=== PATIENT | female | born 1945 | race Hispanic/Latino ===

== ENCOUNTER 2021-04-05 16:18 | Emergency (ER) | payer OTHER ==
[~2021-04-05] VITALS: Ht 152.4 cm; Wt 90.7 kg
[2021-04-05 17:35] LABS: BASOPHILS % 0.1 % (0.0-1.0); EOSINOPHILS % 0.2 % (0.0-6.0); HEMATOCRIT 38.6 % (34.2-44.1); HEMOGLOBIN 12.8 g/dL (12.0-16.0); LYMPHOCYTES # (AUTO) 1.8 (1.0-3.2); LYMPHOCYTES % 17.1 % (18.0-39.1); MEAN CORPUSCULAR HEMOGLOBIN 29.4 pg (28-32); MEAN CORPUSCULAR HGB CONC 33.2 g/dL (31-35); MEAN CORPUSCULAR VOLUME 88.7 fL (81-99); MONOCYTES # (AUTO) 0.6 (0.2-0.8); NEUTROPHILS # (AUTO) 7.8 (2.1-6.9); NEUTROPHILS % 75.9 % (38.7-80.0); PLATELET COUNT 223 x10e3/uL (140-360); RED BLOOD COUNT 4.35 x10e6/uL (3.6-5.1); RED CELL DISTRIBUTION WIDTH 13.6 % (11.7-14.4)
[2021-04-05 17:52] LABS: ALBUMIN 2.7 g/dL (3.5-5.0); ALBUMIN/GLOBULIN RATIO 0.7 (0.8-2.0); ANION GAP 15.4 mmol/L (8-16); CALCIUM 7.8 mg/dL (8.4-10.2); CREATININE, SERUM 1.1 mg/dL (0.57-1.11); POTASSIUM 3.4 mmol/L (3.5-5.1)
[2021-04-05 17:58] LABS: CREATINE KINASE MB 0.9 ng/mL (0-5.0)
[2021-04-05 21:02] VITALS: BP 146/89
== END 2021-04-05 21:05 | disposition home or self-care (01) ==
LOC: ER 20:56
DX: R42 Dizziness and giddiness (principal); I10 Essential (primary) hypertension; Z86.16 Personal history of COVID-19
CPT/HCPCS: 36415; 70450; 71045; 80053; 82550; 82553; 84484; 85025; 93005; 99283

== ENCOUNTER 2023-06-27 10:54 | Observation (INO) | payer MEDICARE, OTHER ==
[~2023-06-27] VITALS: Ht 152.4 cm; Wt 73.5 kg
[~2023-06-27 10:54] MED LIST: AMBIEN10 MG PO; CARVEDILOL25 MG PO; CEFUROXIME500 MG PO; CHLORTHALIDONE25 MG PO; CIPRO500 MG PO; HYDRALAZINE HCL25 MG PO; HYDRALAZINE HCL50 MG PO; HYDROCORTISONE5 MG PO; ISOSORBIDE MON120 MG PO; KLOR-CON 1010 MEQ PO; LEVOTHYROXINE50 MCG PO; ONDANSETRON ODT4 MG PO; SIMVASTATIN20 MG PO
[2023-06-27 12:11] LABS: BASOPHILS # (AUTO) 0.1 (0.0-0.1); BASOPHILS % 0.5 % (0.0-1.0); EOSINOPHILS # (AUTO) 0.1 (0.0-0.4); HEMATOCRIT 24.6 % (34.2-44.1); HEMOGLOBIN 7.8 g/dL (12.0-16.0); LYMPHOCYTES # (AUTO) 3.1 (1.0-3.2); LYMPHOCYTES % 28.4 % (18.0-39.1); MEAN CORPUSCULAR HEMOGLOBIN 30.2 pg (28-32); MEAN CORPUSCULAR HGB CONC 31.7 g/dL (31-35); MEAN CORPUSCULAR VOLUME 95.3 fL (81-99); MONOCYTES # (AUTO) 0.9 (0.2-0.8); MONOCYTES % 8.5 % (4.4-11.3); NEUTROPHILS # (AUTO) 6.6 (2.1-6.9); PLATELET COUNT 318 x10e3/uL (140-360); RED BLOOD COUNT 2.58 x10e6/uL (3.6-5.1); RED CELL DISTRIBUTION WIDTH 14.6 % (11.7-14.4); WHITE BLOOD COUNT 10.88 x10e3/uL (4.8-10.8)
[2023-06-27 12:28] LABS: ANION GAP 13.8 mmol/L (8-16); CALCIUM 8.6 mg/dL (8.4-10.2); CREATININE, SERUM 1.15 mg/dL (0.57-1.11); POTASSIUM 3.8 mmol/L (3.5-5.1)
[2023-06-27] MEDS ORDERED: SODIUM CHLORIDE 0.9% 1000ML 1,000 ML IV SCH (13:00)
[2023-06-27 13:14] LABS: BILIRUBIN,URINE NEGATIVE (NEGATIVE); CLARITY,URINE CLEAR (CLEAR); COLOR,URINE YELLOW (YELLOW); GLUCOSE, URINE NEGATIVE (NEGATIVE); KETONES,URINE NEGATIVE (NEGATIVE); LEUKOCYTE ESTERASE ,URINE NEGATIVE (NEGATIVE); NITRITE,URINE NEGATIVE (NEGATIVE); PH,URINE 7.5 (5 - 7); PROTEIN,URINE DIPSTICK NEGATIVE (NEGATIVE); URINE UROBILINOGEN 0.2 mg/dL (0.2 - 1)
[2023-06-27 13:15] LABS: BACTERIA,URINE FEW /HPF; EPITHELIAL CELLS,URINE FEW /LPF; RBC,URINE 0-5 /HPF (0-5); WBC,URINE (MAN) 0-5 /HPF (0-5)
[2023-06-27] MEDS ORDERED: HYDRALAZINE HCL 20 MG/ML VIAL IV STA (13:23)
[2023-06-27 15:01] LABS: % IRON SATURATION 10 % (15-50); IRON 32 ug/dL (50-170); TOTAL IRON BINDING CAPACITY 335 ug/dL (261-478); TRANSFERRIN 239 mg/dL (180-382)
[2023-06-27 15:22] VITALS: PULSE 80; RESP 18; O2SAT 98
[2023-06-27 15:30] VITALS: BP 148/54; PULSE 78; RESP 18; TEMP 97.8; O2SAT 99
[2023-06-27 15:37] VITALS: BP 148/54; PULSE 78; RESP 18; TEMP 97.8; O2SAT 99
[2023-06-27] MEDS ORDERED: ACETAMINOPHEN 325 MG TAB PO PRN (17:15)
[2023-06-27] MEDS ORDERED: HYDRALAZINE HCL 20 MG/ML VIAL IV PRN (17:15)
[2023-06-27] MEDS ORDERED: ONDANSETRON HCL INJ 2MG/ML 2ML 2 MG/ML VIAL IV PRN (17:15)
[2023-06-27] MEDS ORDERED: POLYETHYLENE GLYCOL 3350 17 GM PACK PO PRN (17:15)
[2023-06-27] MEDS ORDERED: IRON SUCROSE 100 MG in SODIUM CHLORIDE 0.9% 100 ML IV SCH (17:30)
[2023-06-27] MEDS: FERROUS SULFATE 325 MG TAB PO SCH (17:39)
[2023-06-27] MEDS: ASCORBIC ACID 500 MG TAB PO SCH (17:39)
[2023-06-27] MEDS: SODIUM CHLORIDE 0.9% 1000ML 1,000 ML IV SCH (17:46)
[2023-06-27 19:15] VITALS: PULSE 84; RESP 18; O2SAT 95
[2023-06-27 20:00] VITALS: BP 153/48; PULSE 80; RESP 18; TEMP 98.3; O2SAT 97
[2023-06-27] MEDS ORDERED: LISINOPRIL10 MG PO (20:14)
[2023-06-27] MEDS ORDERED: ALENDRONATE SOD70 MG PO (20:14)
[2023-06-28] VITALS (7 sets, daily range): BP systolic 147–188; BP diastolic 44–67; PULSE 55–85; RESP 17–19; TEMP 97.1–98.4; O2SAT 96–100
[2023-06-28] MEDS: SODIUM CHLORIDE 0.9% 1000ML 1,000 ML IV SCH (04:06)
[2023-06-28 05:53] LABS: BASOPHILS % 0.3 % (0.0-1.0); EOSINOPHILS # (AUTO) 0.1 (0.0-0.4); EOSINOPHILS % 0.8 % (0.0-6.0); HEMATOCRIT 24.3 % (34.2-44.1); HEMOGLOBIN 7.7 g/dL (12.0-16.0); LYMPHOCYTES # (AUTO) 2.5 (1.0-3.2); LYMPHOCYTES % 22.9 % (18.0-39.1); MEAN CORPUSCULAR HEMOGLOBIN 29.8 pg (28-32); MEAN CORPUSCULAR HGB CONC 31.7 g/dL (31-35); MEAN CORPUSCULAR VOLUME 94.2 fL (81-99); MONOCYTES # (AUTO) 0.8 (0.2-0.8); MONOCYTES % 7.3 % (4.4-11.3); NEUTROPHILS # (AUTO) 7.4 (2.1-6.9); PLATELET COUNT 318 x10e3/uL (140-360); RED BLOOD COUNT 2.58 x10e6/uL (3.6-5.1); RED CELL DISTRIBUTION WIDTH 14.6 % (11.7-14.4)
[2023-06-28 06:13] LABS: ANION GAP 13.9 mmol/L (8-16); CALCIUM 8.3 mg/dL (8.4-10.2); CREATININE, SERUM 1.19 mg/dL (0.57-1.11); POTASSIUM 3.9 mmol/L (3.5-5.1)
[2023-06-28 06:42] LABS: CHOL/HDL RATIO 3.1 (3.0-3.6); MAGNESIUM 1.8 MG/DL (1.3-2.1); PHOSPHORUS 3.4 MG/DL (2.3-4.7)
[2023-06-28] MEDS ORDERED: PANTOPRAZOLE SOD 40 MG TABEC PO SCH (07:30)
[2023-06-28] MEDS ORDERED: ONDANSETRON HCL 4 MG ORAL DISINTEGRATING TAB PO PRN (09:00)
[2023-06-28] MEDS ORDERED: DOCUSATE SODIUM 100 MG CAP PO SCH (09:00)
[2023-06-28] MEDS ORDERED: ZOLPIDEM TARTRATE 10 MG TAB PO PRN (09:00)
[2023-06-28] MEDS: ASCORBIC ACID 500 MG TAB PO SCH (09:10)
[2023-06-28] MEDS: FERROUS SULFATE 325 MG TAB PO SCH (09:10)
[2023-06-28] MEDS ORDERED: HYDROCORTISONE 10 MG TAB PO SCH (09:30)
[2023-06-28] MEDS ORDERED: CHLORTHALIDONE 25 MG TAB PO SCH (09:30)
[2023-06-28] MEDS ORDERED: LEVOTHYROXINE SODIUM 25 MCG TABLET PO SCH (09:30)
[2023-06-28] MEDS ORDERED: LISINOPRIL 20 MG TAB PO SCH (09:30)
[2023-06-28] MEDS ORDERED: CARVEDILOL 12.5 MG TAB PO SCH (09:30)
[2023-06-28] MEDS ORDERED: SIMETHICONE 80 MG CHEW PO PRN (11:15)
[2023-06-28] MEDS ORDERED: ASCORBIC ACID500 MG PO (11:17)
[2023-06-28] MEDS ORDERED: ACETAMINOPHEN325 M1 PO (11:17)
[2023-06-28] MEDS ORDERED: COLACE100 M1 PO (11:17)
[2023-06-28] MEDS ORDERED: FERROUS SULFAT325 MG PO (11:17)
[2023-06-28] MEDS ORDERED: MIRALAX17 GM PO (11:17)
[2023-06-28] MEDS ORDERED: SIMETHICONE 80 MG CHEW PO ONE (11:45)
[2023-07-05] MEDS ORDERED: ALENDRONATE SODIUM 70 MG TAB PO SCH (07:30)
== END 2023-06-28 14:45 | disposition home or self-care (01) ==
LOC: ER 11:11 → ERHOLD 13:27 → MED/SURG2 15:12
PROVIDERS: ADMIT Internal Medicine; ATTEND Internal Medicine
DX: D50.9 Iron deficiency anemia, unspecified (principal); I10 Essential (primary) hypertension; E86.0 Dehydration; D72.829 Elevated white blood cell count, unspecified; R11.0 Nausea; R00.1 Bradycardia, unspecified; E78.5 Hyperlipidemia, unspecified; E03.9 Hypothyroidism, unspecified; E66.9 Obesity, unspecified; Z68.31 Body mass index [BMI] 31.0-31.9, adult; E27.40 Unspecified adrenocortical insufficiency; M19.91 Primary osteoarthritis, unspecified site; Z11.52 Encounter for screening for COVID-19; Z86.16 Personal history of COVID-19; Z79.899 Other long term (current) drug therapy; Z88.0 Allergy status to penicillin
CPT/HCPCS: 36415 ×2; 70450; 71045; 80048 ×2; 80061; 81001; 82607; 82728; 83540; 83735; 84100; 84466; 84484; 85025 ×2; 86850; 86900; 93005; 94799 ×2; 99284; G0378 ×2; J0360 ×2; J1756 ×2; J2405; J7030 ×2; J7050 ×2; Q0162; S0164; U0002

== ENCOUNTER 2024-03-05 17:07 | Emergency (ER) | payer MEDICARE, OTHER ==
[~2024-03-05] VITALS: Ht 152.4 cm; Wt 73.5 kg
[~2024-03-05 17:07] MED LIST changes: +ACETAMINOPHEN325 M1 PO; +ALENDRONATE SOD70 MG PO; +ASCORBIC ACID500 MG PO; +COLACE100 M1 PO; +FERROUS SULFAT325 MG PO; +LISINOPRIL10 MG PO; +MIRALAX17 GM PO
[2024-03-05 17:23] VITALS: PULSE 60; RESP 14; TEMP 97.5
[2024-03-05 17:52] LABS: BASOPHILS # (AUTO) 0.1 (0.0-0.1); BASOPHILS % 0.4 % (0.0-1.0); EOSINOPHILS % 0.3 % (0.0-6.0); HEMATOCRIT 37.3 % (34.2-44.1); HEMOGLOBIN 12.3 g/dL (12.0-16.0); LYMPHOCYTES # (AUTO) 2.2 (1.0-3.2); LYMPHOCYTES % 17.6 % (18.0-39.1); MEAN CORPUSCULAR HEMOGLOBIN 31.2 pg (28-32); MEAN CORPUSCULAR VOLUME 94.7 fL (81-99); MONOCYTES # (AUTO) 0.4 (0.2-0.8); MONOCYTES % 3.4 % (4.4-11.3); NEUTROPHILS # (AUTO) 9.6 (2.1-6.9); NEUTROPHILS % 77.5 % (38.7-80.0); PLATELET COUNT 230 x10e3/uL (140-360); RED BLOOD COUNT 3.94 x10e6/uL (3.6-5.1); RED CELL DISTRIBUTION WIDTH 13.1 % (11.7-14.4); WHITE BLOOD COUNT 12.38 x10e3/uL (4.8-10.8)
[2024-03-05 18:09] LABS: ALANINE AMINOTRANSFERASE 12 IU/L (0-55); ALBUMIN 3.6 g/dL (3.5-5.0); ALBUMIN/GLOBULIN RATIO 1.3 (0.8-2.0); ALKALINE PHOSPHATASE 95 IU/L (40-150); ANION GAP 15.7 mmol/L (8-16); BILIRUBIN,TOTAL 0.3 mg/dL (0.2-1.2); BLOOD UREA NITROGEN 34 mg/dL (7-26); BUN/CREATININE RATIO 22 (6-25); CALCIUM 9.1 mg/dL (8.4-10.2); CARBON DIOXIDE 25 mmol/L (22-29); CHLORIDE 99 mmol/L (98-107); CREATININE, SERUM 1.56 mg/dL (0.57-1.11); EST GLOMERULAR FILTRATION RATE 34 ML/MIN (>=60); GLUCOSE 195 mg/dL (74-118); POTASSIUM 3.7 mmol/L (3.5-5.1); SODIUM 136 mmol/L (136-145); TOTAL PROTEIN 6.4 g/dL (6.5-8.1)
[2024-03-05 18:16] LABS: TROPONIN I < 0.001 ng/mL (0-0.300)
[2024-03-05 18:39] LABS: BILIRUBIN,URINE NEGATIVE (NEGATIVE); CLARITY,URINE SL CLOUDY (CLEAR); COLOR,URINE YELLOW (YELLOW); GLUCOSE, URINE NEGATIVE (NEGATIVE); KETONES,URINE TRACE (NEGATIVE); LEUKOCYTE ESTERASE ,URINE TRACE (NEGATIVE); PH,URINE 6 (5 - 7); PROTEIN,URINE DIPSTICK NEGATIVE (NEGATIVE); URINE UROBILINOGEN 0.2 mg/dL (0.2 - 1)
[2024-03-05 18:47] LABS: NITRITE,URINE NEGATIVE (NEGATIVE)
[2024-03-05 18:48] LABS: BACTERIA,URINE MODERATE /HPF; EPITHELIAL CELLS,URINE MANY /LPF; TRANSITIONAL EPI CELLS,URINE MODERATE; WBC,URINE (MAN) 0-5 /HPF (0-5)
[2024-03-05] MEDS: SODIUM CHLORIDE FLUSH 10 ML SYR IV PRN (18:48)
[2024-03-05] MEDS: SODIUM CHLORIDE 0.9% 1000ML 1,000 ML IV STA (18:48)
[2024-03-05 19:00] LABS: HEMATOCRIT 37.4 % (34.2-44.1); HEMOGLOBIN 12.3 g/dL (12.0-16.0)
[2024-03-05 19:04] LABS: BASOPHILS % 0.3 % (0.0-1.0); EOSINOPHILS % 0.3 % (0.0-6.0); LYMPHOCYTES # (AUTO) 2.7 (1.0-3.2); LYMPHOCYTES % 20.8 % (18.0-39.1); MEAN CORPUSCULAR HEMOGLOBIN 30.9 pg (28-32); MEAN CORPUSCULAR HGB CONC 32.9 g/dL (31-35); MONOCYTES # (AUTO) 0.8 (0.2-0.8); MONOCYTES % 5.9 % (4.4-11.3); NEUTROPHILS # (AUTO) 9.3 (2.1-6.9); PLATELET COUNT 228 x10e3/uL (140-360); RED BLOOD COUNT 4.01 x10e6/uL (3.6-5.1); RED CELL DISTRIBUTION WIDTH 13.2 % (11.7-14.4); WHITE BLOOD COUNT 12.85 x10e3/uL (4.8-10.8)
[2024-03-05 21:09] VITALS: BP 156/74; PULSE 75; RESP 18; TEMP 98.3; O2SAT 100
== END 2024-03-05 21:17 | disposition home or self-care (01) ==
LOC: ER 17:34
DX: R55 Syncope and collapse (principal); N28.9 Disorder of kidney and ureter, unspecified; I10 Essential (primary) hypertension; M81.0 Age-related osteoporosis without current pathological fracture; R94.31 Abnormal electrocardiogram [ECG] [EKG]
CPT/HCPCS: 36415; 70450; 71045; 80053; 81001; 82948; 84484; 85014; 85018; 85025; 86850; 86900; 87400; 93005; 94760; 99284; J7030; U0002

== ENCOUNTER 2024-07-13 13:01 | Inpatient (IN) | payer MEDICARE, OTHER ==
[~2024-07-13] VITALS: Ht 152.4 cm; Wt 69.5 kg
[2024-07-13] VITALS (7 sets, daily range): BP systolic 208–239; BP diastolic 65–70; PULSE 71–101; RESP 16–22; TEMP 97.9–98.2; O2SAT 95–99
[2024-07-13 14:43] LABS: BASOPHILS # (AUTO) 0.1 (0.0-0.1); BASOPHILS % 0.4 % (0.0-1.0); EOSINOPHILS # (AUTO) 0.1 (0.0-0.4); EOSINOPHILS % 0.8 % (0.0-6.0); HEMATOCRIT 42.9 % (34.2-44.1); HEMOGLOBIN 13.7 g/dL (12.0-16.0); LYMPHOCYTES # (AUTO) 3.4 (1.0-3.2); LYMPHOCYTES % 24.8 % (18.0-39.1); MEAN CORPUSCULAR HEMOGLOBIN 30.6 pg (28-32); MEAN CORPUSCULAR HGB CONC 31.9 g/dL (31-35); MONOCYTES # (AUTO) 0.9 (0.2-0.8); MONOCYTES % 6.7 % (4.4-11.3); NEUTROPHILS # (AUTO) 9.1 (2.1-6.9); NEUTROPHILS % 66.9 % (38.7-80.0); PLATELET COUNT 191 x10e3/uL (140-360); RED BLOOD COUNT 4.47 x10e6/uL (3.6-5.1); WHITE BLOOD COUNT 13.65 x10e3/uL (4.8-10.8)
[2024-07-13 14:52] LABS: INR 0.88; PROTHROMBIN TIME 12.5 seconds (11.9-14.5)
[2024-07-13 14:53] LABS: PARTIAL THROMBOPLASTIN TIME 26.9 seconds (23.8-35.5)
[2024-07-13 15:02] LABS: ALBUMIN 3.8 g/dL (3.5-5.0); ALBUMIN/GLOBULIN RATIO 1.3 (0.8-2.0); ANION GAP 16.7 mmol/L (8-16); BILIRUBIN,TOTAL 0.3 mg/dL (0.2-1.2); CALCIUM 9.5 mg/dL (8.4-10.2); CREATININE, SERUM 1.02 mg/dL (0.57-1.11); POTASSIUM 3.7 mmol/L (3.5-5.1); TOTAL PROTEIN 6.8 g/dL (6.5-8.1)
[2024-07-13 15:08] LABS: TROPONIN I 0.003 ng/mL (0-0.300)
[2024-07-13] MEDS: HYDRALAZINE HCL 20 MG/ML VIAL IV PRN (16:57)
[2024-07-13] MEDS ORDERED: SODIUM CHLORIDE 0.9% 1000ML 2,000 ML ONE (17:35)
[2024-07-13] MEDS: SODIUM CHLORIDE 0.9% 1000ML 2,000 ML IV ONE (17:37)
[2024-07-13] MEDS: ASPIRIN 81 MG CHEW TAB PO ONE (18:03)
[2024-07-13] MEDS ORDERED: POLYETHYLENE GLYCOL 3350 17 GM PACK PO PRN (21:00)
[2024-07-13] MEDS: LABETALOL HCL 5 MG/ML 20ML VIAL IV PRN (21:11)
[2024-07-13] MEDS ORDERED: ISOSORBIDE MONO30 MG PO (21:27)
[2024-07-14] VITALS (26 sets, daily range): BP systolic 115–226; BP diastolic 44–91; PULSE 64–95; RESP 15–24; TEMP 98.1–98.6; O2SAT 90–98
[2024-07-14 01:47] LABS: TROPONIN I 0.025 ng/mL (0-0.300)
[2024-07-14] MEDS: ACETAMINOPHEN 325 MG TAB PO PRN (02:59)
[2024-07-14 06:58] LABS: BASOPHILS # (AUTO) 0.1 (0.0-0.1); BASOPHILS % 0.4 % (0.0-1.0); EOSINOPHILS # (AUTO) 0.2 (0.0-0.4); EOSINOPHILS % 1.7 % (0.0-6.0); HEMATOCRIT 39.9 % (34.2-44.1); HEMOGLOBIN 13.4 g/dL (12.0-16.0); LYMPHOCYTES # (AUTO) 4.7 (1.0-3.2); LYMPHOCYTES % 36.8 % (18.0-39.1); MEAN CORPUSCULAR HEMOGLOBIN 30.9 pg (28-32); MEAN CORPUSCULAR HGB CONC 33.6 g/dL (31-35); MEAN CORPUSCULAR VOLUME 92.1 fL (81-99); MONOCYTES % 8.1 % (4.4-11.3); NEUTROPHILS # (AUTO) 6.7 (2.1-6.9); NEUTROPHILS % 52.6 % (38.7-80.0); PLATELET COUNT 199 x10e3/uL (140-360); RED BLOOD COUNT 4.33 x10e6/uL (3.6-5.1); RED CELL DISTRIBUTION WIDTH 13.2 % (11.7-14.4); WHITE BLOOD COUNT 12.81 x10e3/uL (4.8-10.8)
[2024-07-14 07:03] LABS: CHOL/HDL RATIO 2.8 (3.0-3.6); MAGNESIUM 1.6 MG/DL (1.3-2.1); PHOSPHORUS 4.6 MG/DL (2.3-4.7)
[2024-07-14 07:05] LABS: ALBUMIN 3.5 g/dL (3.5-5.0); ALBUMIN/GLOBULIN RATIO 1.3 (0.8-2.0); ANION GAP 15.7 mmol/L (8-16); BILIRUBIN,TOTAL 0.5 mg/dL (0.2-1.2); CALCIUM 9.5 mg/dL (8.4-10.2); CREATININE, SERUM 0.97 mg/dL (0.57-1.11); POTASSIUM 3.7 mmol/L (3.5-5.1); TOTAL PROTEIN 6.2 g/dL (6.5-8.1)
[2024-07-14 07:26] LABS: FREE T4 (FREE THYROXINE) 0.86 ng/dL (0.8-1.8); THYROID STIMULATING HORMONE 0.519 uIU/mL (0.350-4.940)
[2024-07-14 08:07] LABS: TROPONIN I 0.02 ng/mL (0-0.300)
[2024-07-14] MEDS: DOCUSATE SODIUM 100 MG CAP PO SCH (08:55)
[2024-07-14] MEDS: FAMOTIDINE 20 MG TAB PO SCH (08:55)
[2024-07-14] MEDS: CARVEDILOL 12.5 MG TAB PO SCH (08:56)
[2024-07-14] MEDS: ISOSORBIDE MONONITRATE 30 MG TAB CR PO SCH (08:56)
[2024-07-14] MEDS: LISINOPRIL 20 MG TAB PO SCH (09:10)
[2024-07-14 17:03] LABS: BILIRUBIN,URINE NEGATIVE (NEGATIVE); CLARITY,URINE SL CLOUDY (CLEAR); COLOR,URINE YELLOW (YELLOW); GLUCOSE, URINE NEGATIVE (NEGATIVE); KETONES,URINE NEGATIVE (NEGATIVE); LEUKOCYTE ESTERASE ,URINE 1+ (NEGATIVE); NITRITE,URINE NEGATIVE (NEGATIVE); PH,URINE 7 (5 - 7); PROTEIN,URINE DIPSTICK NEGATIVE (NEGATIVE); URINE UROBILINOGEN 0.2 mg/dL (0.2 - 1)
[2024-07-14 17:15] LABS: BACTERIA,URINE FEW /HPF; EPITHELIAL CELLS,URINE MANY /LPF; RBC,URINE 0-5 /HPF (0-5); WBC,URINE (MAN) 0-5 /HPF (0-5)
[2024-07-14 17:16] LABS: TRANSITIONAL EPI CELLS,URINE FEW
[2024-07-14 17:17] LABS: HYALINE CASTS 0-1 (0-1)
[2024-07-14] MEDS: AMLODIPINE BESYLATE 5 MG TAB PO SCH (18:24)
[2024-07-14] MEDS: ZOLPIDEM TARTRATE 5 MG TAB PO PRN (21:27)
[2024-07-15] VITALS (34 sets, daily range): BP systolic 57–167; BP diastolic 13–81; PULSE 55–75; RESP 15–25; TEMP 98–98.4; O2SAT 93–100
[2024-07-15] MEDS: LEVOTHYROXINE SODIUM 25 MCG TABLET PO SCH (06:55)
[2024-07-15] MEDS: SODIUM CHLORIDE 0.9% 1000ML 1,000 ML IV ONE (13:15)
[2024-07-15] MEDS ORDERED: ONDANSETRON HCL INJ 2MG/ML 2ML 2 MG/ML VIAL IV PRN (13:30)
[2024-07-15 14:34] LABS: TROPONIN I 0.005 ng/mL (0-0.300)
[2024-07-16] VITALS (17 sets, daily range): BP systolic 108–163; BP diastolic 28–63; PULSE 63–82; RESP 13–27; TEMP 98–99.5; O2SAT 94–99
[2024-07-16] MEDS: ONDANSETRON HCL INJ 2MG/ML 2ML 2 MG/ML VIAL IV PRN (17:21)
[2024-07-17] VITALS (17 sets, daily range): BP systolic 95–152; BP diastolic 38–118; PULSE 63–82; RESP 11–26; TEMP 98–99; O2SAT 92–99
[2024-07-17] MEDS: ACETAMIN/BUTALBITAL/CAFFEINE TAB PO PRN (09:14)
[2024-07-17 14:48] LABS: HEMATOCRIT 39.7 % (34.2-44.1); HEMOGLOBIN 12.4 g/dL (12.0-16.0); LYMPHOCYTES % 35.9 % (18.0-39.1); MEAN CORPUSCULAR HEMOGLOBIN 30.8 pg (28-32); MEAN CORPUSCULAR HGB CONC 31.2 g/dL (31-35); MEAN CORPUSCULAR VOLUME 98.5 fL (81-99); NEUTROPHILS % 52.4 % (38.7-80.0); PLATELET COUNT 158 x10e3/uL (140-360); RED BLOOD COUNT 4.03 x10e6/uL (3.6-5.1); RED CELL DISTRIBUTION WIDTH 13.1 % (11.7-14.4); WHITE BLOOD COUNT 10.29 x10e3/uL (4.8-10.8)
[2024-07-17 14:49] LABS: BASOPHILS % 0.4 % (0.0-1.0); EOSINOPHILS # (AUTO) 0.3 (0.0-0.4); EOSINOPHILS % 3.1 % (0.0-6.0); LYMPHOCYTES # (AUTO) 3.7 (1.0-3.2); MONOCYTES # (AUTO) 0.8 (0.2-0.8); MONOCYTES % 7.7 % (4.4-11.3); NEUTROPHILS # (AUTO) 5.4 (2.1-6.9)
[2024-07-17 15:08] LABS: ANION GAP 16.2 mmol/L (8-16); CALCIUM 8.9 mg/dL (8.4-10.2); CREATININE, SERUM 1.95 mg/dL (0.57-1.11); POTASSIUM 4.2 mmol/L (3.5-5.1)
[2024-07-18] VITALS (44 sets, daily range): BP systolic 63–150; BP diastolic 31–121; PULSE 50–89; RESP 10–29; TEMP 98.1–98.6; O2SAT 92–100
[2024-07-18] MEDS: LISINOPRIL 20 MG TAB PO SCH (08:01)
[2024-07-18] MEDS: CARVEDILOL 12.5 MG TAB PO SCH ×2 (08:02→21:05)
[2024-07-18] MEDS: MUPIROCIN 2% OINT 22 GM TUBE TOP SCH (14:15)
[2024-07-18 14:22] LABS: ABG HCO3 22 mmol/L (22-26); ABG PCO2 32 mmHg (35-45); ABG PH 7.45 (7.35-7.45); ABG PO2 353 mmHg (80-105); ABG TCO2 23
[2024-07-18 14:38] LABS: BASOPHILS # (AUTO) 0.1 (0.0-0.1); BASOPHILS % 0.6 % (0.0-1.0); EOSINOPHILS # (AUTO) 0.3 (0.0-0.4); EOSINOPHILS % 2.3 % (0.0-6.0); HEMATOCRIT 38.7 % (34.2-44.1); HEMOGLOBIN 12.9 g/dL (12.0-16.0); LYMPHOCYTES # (AUTO) 4.6 (1.0-3.2); LYMPHOCYTES % 37.9 % (18.0-39.1); MEAN CORPUSCULAR HEMOGLOBIN 31.5 pg (28-32); MEAN CORPUSCULAR HGB CONC 33.3 g/dL (31-35); MEAN CORPUSCULAR VOLUME 94.6 fL (81-99); MONOCYTES # (AUTO) 0.7 (0.2-0.8); NEUTROPHILS # (AUTO) 6.3 (2.1-6.9); PLATELET COUNT 161 x10e3/uL (140-360); RED BLOOD COUNT 4.09 x10e6/uL (3.6-5.1); WHITE BLOOD COUNT 12.04 x10e3/uL (4.8-10.8)
[2024-07-18] MEDS ORDERED: MUPIROCIN 2% OINT 22 GM TUBE TOP SCH (14:45)
[2024-07-18 14:58] LABS: ALBUMIN 3.1 g/dL (3.5-5.0); ALBUMIN/GLOBULIN RATIO 1.1 (0.8-2.0); ANION GAP 18.4 mmol/L (8-16); BILIRUBIN,TOTAL 0.8 mg/dL (0.2-1.2); CALCIUM 9.5 mg/dL (8.4-10.2); CREATININE, SERUM 2.11 mg/dL (0.57-1.11); POTASSIUM 4.4 mmol/L (3.5-5.1); TOTAL PROTEIN 5.8 g/dL (6.5-8.1)
[2024-07-18 15:05] LABS: TROPONIN I 0.018 ng/mL (0-0.300)
[2024-07-18] MEDS ORDERED: IOPAMIDOL 370 MG/ML 100 ML INFUS..BTL INJ ONE (15:18)
[2024-07-18] MEDS ORDERED: CALCIUM CHLORIDE 10% 1.36 MEQ/ML 10ML SYR IV ONE (17:14)
[2024-07-18] MEDS ORDERED: SODIUM CHLORIDE 0.9% 1000 ML BAG ONE (17:14)
[2024-07-18] MEDS: LACTATED RINGER'S 1,000 ML INJ ONE (17:55)
[2024-07-18] MEDS: KETOROLAC TROMETHAMINE 30 MG/ML VIAL IV PRN (18:39)
[2024-07-18] MEDS: SODIUM CHLORIDE 0.9% ONE (20:27)
[2024-07-18] MEDS: CALCIUM GLUC 1 G/50 ML NACL 150 ML IV ONE (20:28)
[2024-07-18] MEDS ORDERED: HYDROCORTISONE 10 MG TAB PO SCH (21:00)
[2024-07-18] MEDS: HYDROCORTISONE 10 MG TAB PO SCH (21:05)
[2024-07-19] VITALS (40 sets, daily range): BP systolic 89–191; BP diastolic 34–107; PULSE 67–88; RESP 10–32; TEMP 98.1–99.1; O2SAT 92–100
[2024-07-19] MEDS ORDERED: IOPAMIDOL 370 MG/ML 100 ML INFUS..BTL INJ ONE (05:33)
[2024-07-19 06:43] LABS: ABG HCO3 22 mmol/L (22-26); ABG PCO2 32 mmHg (35-45); ABG PH 7.45 (7.35-7.45); ABG PO2 353 mmHg (80-105); ABG TCO2 23
[2024-07-19 06:45] LABS: BASOPHILS # (AUTO) 0.1 (0.0-0.1); BASOPHILS % 0.5 % (0.0-1.0); EOSINOPHILS # (AUTO) 0.3 (0.0-0.4); EOSINOPHILS % 3.1 % (0.0-6.0); HEMATOCRIT 34.2 % (34.2-44.1); HEMOGLOBIN 10.9 g/dL (12.0-16.0); LYMPHOCYTES # (AUTO) 2.7 (1.0-3.2); MEAN CORPUSCULAR HEMOGLOBIN 31.1 pg (28-32); MEAN CORPUSCULAR HGB CONC 31.9 g/dL (31-35); MEAN CORPUSCULAR VOLUME 97.4 fL (81-99); MONOCYTES # (AUTO) 0.6 (0.2-0.8); MONOCYTES % 6.1 % (4.4-11.3); NEUTROPHILS # (AUTO) 5.9 (2.1-6.9); NEUTROPHILS % 61.8 % (38.7-80.0); PLATELET COUNT 147 x10e3/uL (140-360); RED BLOOD COUNT 3.51 x10e6/uL (3.6-5.1); RED CELL DISTRIBUTION WIDTH 13.2 % (11.7-14.4); WHITE BLOOD COUNT 9.57 x10e3/uL (4.8-10.8)
[2024-07-19 07:12] LABS: ALBUMIN 2.7 g/dL (3.5-5.0); ALBUMIN/GLOBULIN RATIO 1.2 (0.8-2.0); BILIRUBIN,TOTAL 0.5 mg/dL (0.2-1.2); CALCIUM 8.5 mg/dL (8.4-10.2); CREATININE, SERUM 1.38 mg/dL (0.57-1.11)
[2024-07-19] MEDS ORDERED: HYDROCORTISONE 10 MG TAB PO SCH (09:00)
[2024-07-19] MEDS: HYDROCORTISONE 10 MG TAB PO SCH (09:24)
[2024-07-19] MEDS: ASCORBIC ACID 500 MG TAB PO SCH (09:24)
[2024-07-19] MEDS: FERROUS SULFATE 325 MG TAB PO SCH (09:24)
[2024-07-19 11:10] LABS: NORMETANEPHRINE, 24h URINE 305 ug/24 hr (131-612)
[2024-07-19] MEDS ORDERED: HYDROCORTISONE SOD SUCCINATE 250 MG VIAL IV SCH (11:45)
[2024-07-19 11:49] LABS: METANEPHRINE, 24h URINE 100 ug/L (Undefined); METANEPHRINE, TOTAL 24h URINE 33 ug/24 hr (36-209)
[2024-07-19] MEDS: SODIUM CHLORIDE 0.9% IV SCH (13:00)
[2024-07-19] MEDS: HYDROCORTISONE SOD SUCCINATE IV SCH (13:00)
[2024-07-20] VITALS (9 sets, daily range): BP systolic 156–180; BP diastolic 48–93; PULSE 73–80; RESP 5–23; TEMP 98–98.7; O2SAT 96–100
[2024-07-20 06:49] LABS: BASOPHILS % 0.1 % (0.0-1.0); HEMATOCRIT 39.2 % (34.2-44.1); HEMOGLOBIN 12.9 g/dL (12.0-16.0); LYMPHOCYTES # (AUTO) 1.9 (1.0-3.2); LYMPHOCYTES % 9.2 % (18.0-39.1); MEAN CORPUSCULAR HEMOGLOBIN 31.3 pg (28-32); MEAN CORPUSCULAR HGB CONC 32.9 g/dL (31-35); MEAN CORPUSCULAR VOLUME 95.1 fL (81-99); MONOCYTES # (AUTO) 0.3 (0.2-0.8); MONOCYTES % 1.4 % (4.4-11.3); NEUTROPHILS # (AUTO) 18.7 (2.1-6.9); NEUTROPHILS % 88.7 % (38.7-80.0); PLATELET COUNT 208 x10e3/uL (140-360); RED BLOOD COUNT 4.12 x10e6/uL (3.6-5.1); RED CELL DISTRIBUTION WIDTH 12.8 % (11.7-14.4); WHITE BLOOD COUNT 21.05 x10e3/uL (4.8-10.8)
[2024-07-20 07:17] LABS: BAND NEUTROPHILS % (MANUAL) 3 %; LYMPHOCYTES % (MANUAL) 10 % (19-48); MONOCYTES % (MANUAL) 4 % (3.4-9.0); NEUTROPHILS % (MANUAL) 83 % (40-74)
[2024-07-20 07:18] LABS: PLATELET ESTIMATE ADEQUATE; PLATELET MORPHOLOGY COMMENT NORMAL; RBC MORPHOLOGY COMMENT NORMAL
[2024-07-20 07:23] LABS: ALBUMIN 3.4 g/dL (3.5-5.0); ALBUMIN/GLOBULIN RATIO 1.1 (0.8-2.0); ANION GAP 15.5 mmol/L (8-16); BILIRUBIN,TOTAL 0.4 mg/dL (0.2-1.2); CALCIUM 10.2 mg/dL (8.4-10.2); CREATININE, SERUM 1.11 mg/dL (0.57-1.11); POTASSIUM 3.5 mmol/L (3.5-5.1); TOTAL PROTEIN 6.4 g/dL (6.5-8.1)
[2024-07-20] MEDS: GLUCAGON FOR INJ 1 MG VIAL IV ONE (21:32)
[2024-07-20] MEDS: CALCIUM GLUC 1 G/50 ML NACL 50 ML IV ONE (21:32)
[2024-07-20] MEDS: SODIUM CHLORIDE 0.9% 1000ML 1,000 ML IV STA (21:32)
[2024-07-21] VITALS (12 sets, daily range): BP systolic 130–203; BP diastolic 38–100; PULSE 66–89; RESP 17–23; TEMP 98–98.6; O2SAT 90–99
[2024-07-21 06:59] LABS: ANION GAP 14.3 mmol/L (8-16); CALCIUM 8.9 mg/dL (8.4-10.2); CREATININE, SERUM 0.88 mg/dL (0.57-1.11)
[2024-07-21 07:00] LABS: POTASSIUM 3.3 mmol/L (3.5-5.1)
[2024-07-21] MEDS: POTASSIUM CHLORIDE 20 MEQ TAB CR PO STA (09:13)
[2024-07-21 23:01] LABS: BILIRUBIN,URINE NEGATIVE (NEGATIVE); CLARITY,URINE CLEAR (CLEAR); COLOR,URINE YELLOW (YELLOW); GLUCOSE, URINE NEGATIVE (NEGATIVE); KETONES,URINE NEGATIVE (NEGATIVE); LEUKOCYTE ESTERASE ,URINE TRACE (NEGATIVE); NITRITE,URINE NEGATIVE (NEGATIVE); PH,URINE 7.5 (5 - 7); PROTEIN,URINE DIPSTICK 1+ (NEGATIVE); URINE UROBILINOGEN 0.2 mg/dL (0.2 - 1)
[2024-07-21 23:09] LABS: BACTERIA,URINE MODERATE /HPF; EPITHELIAL CELLS,URINE MODERATE /LPF; MUCUS,URINE FEW (RARE); RBC,URINE 0-5 /HPF (0-5); RENAL EPITHELIAL CELLS,URINE FEW; TRANSITIONAL EPI CELLS,URINE MODERATE; WBC,URINE (MAN) >50 /HPF (0-5)
[2024-07-21 23:10] LABS: EOSINOPHIL SMEAR,URINE NONE SEEN (NONE SEEN)
[2024-07-22] VITALS (12 sets, daily range): BP systolic 174–212; BP diastolic 43–70; PULSE 66–82; RESP 18–20; TEMP 97.2–98.5; O2SAT 95–97
[2024-07-22 04:55] LABS: BASOPHILS # (AUTO) 0.1 (0.0-0.1); BASOPHILS % 0.4 % (0.0-1.0); EOSINOPHILS # (AUTO) 0.1 (0.0-0.4); EOSINOPHILS % 1.2 % (0.0-6.0); HEMATOCRIT 33.2 % (34.2-44.1); HEMOGLOBIN 10.7 g/dL (12.0-16.0); LYMPHOCYTES % 25.3 % (18.0-39.1); MEAN CORPUSCULAR HGB CONC 32.2 g/dL (31-35); MEAN CORPUSCULAR VOLUME 96.2 fL (81-99); MONOCYTES # (AUTO) 0.8 (0.2-0.8); MONOCYTES % 6.9 % (4.4-11.3); NEUTROPHILS # (AUTO) 7.9 (2.1-6.9); NEUTROPHILS % 65.6 % (38.7-80.0); PLATELET COUNT 184 x10e3/uL (140-360); RED BLOOD COUNT 3.45 x10e6/uL (3.6-5.1); RED CELL DISTRIBUTION WIDTH 13.4 % (11.7-14.4); WHITE BLOOD COUNT 12.03 x10e3/uL (4.8-10.8)
[2024-07-22 05:25] LABS: ALBUMIN 2.8 g/dL (3.5-5.0); ALBUMIN/GLOBULIN RATIO 1.1 (0.8-2.0); ANION GAP 14.5 mmol/L (8-16); BILIRUBIN,TOTAL 0.4 mg/dL (0.2-1.2); CALCIUM 8.6 mg/dL (8.4-10.2); CREATININE, SERUM 0.93 mg/dL (0.57-1.11); POTASSIUM 3.5 mmol/L (3.5-5.1); TOTAL PROTEIN 5.4 g/dL (6.5-8.1)
[2024-07-22] MEDS: MAGNESIUM SULFATE 2GM/50ML 50 ML IV ONE (11:34)
[2024-07-22] MEDS: AMLODIPINE BESYLATE 5 MG TAB PO ONE (15:01)
[2024-07-22] MEDS ORDERED: SIMETHICONE 80 MG CHEW PO PRN (18:30)
[2024-07-22] MEDS: AMLODIPINE BESYLATE 5 MG TAB PO SCH (21:23)
[2024-07-22] MEDS: ZOLPIDEM TARTRATE 5 MG TAB PO PRN (22:53)
[2024-07-23] VITALS (11 sets, daily range): BP systolic 155–212; BP diastolic 51–70; PULSE 68–82; RESP 18–20; TEMP 97.4–98.9; O2SAT 96–99
[2024-07-23] MEDS: CARVEDILOL 12.5 MG TAB PO SCH (10:38)
[2024-07-24] VITALS (11 sets, daily range): BP systolic 121–183; BP diastolic 46–80; PULSE 63–77; RESP 16–20; TEMP 97.6–98.8; O2SAT 96–99
[2024-07-24] MEDS: LISINOPRIL 10 MG TAB PO ONE (09:42)
[2024-07-24] MEDS: SIMETHICONE 80 MG CHEW PO PRN (18:22)
[2024-07-24] MEDS: NIFEDIPINE CR 30 MG TAB PO SCH (20:56)
[2024-07-25] VITALS (10 sets, daily range): BP systolic 121–173; BP diastolic 40–71; PULSE 59–70; RESP 16–20; TEMP 97.6–98.7; O2SAT 95–100
[2024-07-25 05:51] LABS: BASOPHILS # (AUTO) 0.1 (0.0-0.1); BASOPHILS % 0.4 % (0.0-1.0); EOSINOPHILS # (AUTO) 0.2 (0.0-0.4); EOSINOPHILS % 1.7 % (0.0-6.0); HEMATOCRIT 34.8 % (34.2-44.1); HEMOGLOBIN 11.6 g/dL (12.0-16.0); LYMPHOCYTES # (AUTO) 3.1 (1.0-3.2); LYMPHOCYTES % 26.9 % (18.0-39.1); MEAN CORPUSCULAR HEMOGLOBIN 30.9 pg (28-32); MEAN CORPUSCULAR HGB CONC 33.3 g/dL (31-35); MEAN CORPUSCULAR VOLUME 92.6 fL (81-99); MONOCYTES # (AUTO) 0.9 (0.2-0.8); MONOCYTES % 7.4 % (4.4-11.3); NEUTROPHILS # (AUTO) 7.1 (2.1-6.9); NEUTROPHILS % 62.3 % (38.7-80.0); PLATELET COUNT 295 x10e3/uL (140-360); RED BLOOD COUNT 3.76 x10e6/uL (3.6-5.1); RED CELL DISTRIBUTION WIDTH 13.3 % (11.7-14.4); WHITE BLOOD COUNT 11.46 x10e3/uL (4.8-10.8)
[2024-07-25 06:15] LABS: ANION GAP 14.8 mmol/L (8-16); CALCIUM 8.3 mg/dL (8.4-10.2); CREATININE, SERUM 0.94 mg/dL (0.57-1.11); POTASSIUM 3.8 mmol/L (3.5-5.1)
[2024-07-25] MEDS: LISINOPRIL 10 MG TAB PO SCH (08:37)
[2024-07-25] MEDS: CARVEDILOL 12.5 MG TAB PO SCH (21:23)
[2024-07-25] MEDS: SIMETHICONE 80 MG CHEW PO PRN (22:23)
[2024-07-26] VITALS: BP 148/38; PULSE 68; RESP 16; TEMP 98; O2SAT 98
[2024-07-26 04:00] VITALS: BP 152/46; PULSE 61; RESP 18; TEMP 97.9; O2SAT 98
[2024-07-26 09:10] VITALS: BP 149/51; PULSE 72; RESP 18; TEMP 97.9; O2SAT 98
[2024-07-26 09:23] VITALS: BP 149/51
[2024-07-26] MEDS ORDERED: NIFEDIPINE ER30 M1 PO (12:54)
[2024-07-26] MEDS ORDERED: COREG12.5 MG PO (12:54)
[2024-07-26] MEDS ORDERED: LISINOPRIL10 MG PO (12:54)
[2024-07-26] MEDS ORDERED: ONDANSETRON HCL 4 MG ORAL DISINTEGRATING TAB PO PRN (15:15)
[2024-07-27 16:03] LABS: ALDOSTERONE <1.0; RENIN, ACTIVITY PLASMA 1.544
== END 2024-07-26 16:02 | disposition home or self-care (01) | DRG 304 ==
LOC: ER 13:54 → ERHOLD 16:23 → ICU 20:50 → OBSVTOIN 07-16 08:02 → MED/SURG 07-21 14:12
PROVIDERS: ADMIT Internal Medicine; ATTEND Internal Medicine
PROC: 5A12012 Performance of Cardiac Output, Single, Manual (ICD-10-PCS; principal; 2024-07-18)
PROC: 4A033R1 Measurement of Arterial Saturation, Peripheral, Percutaneous Approach (ICD-10-PCS; 2024-07-18)
PROC: 4A033R1 Measurement of Arterial Saturation, Peripheral, Percutaneous Approach (ICD-10-PCS; 2024-07-18)
DX: I16.9 Hypertensive crisis, unspecified (principal); I46.9 Cardiac arrest, cause unspecified; E27.40 Unspecified adrenocortical insufficiency; N17.9 Acute kidney failure, unspecified; M80.08XA Age-related osteoporosis with current pathological fracture, vertebra(e), initial encounter for fracture; I10 Essential (primary) hypertension; R07.89 Other chest pain; R51.9 Headache, unspecified; T46.5X5A Adverse effect of other antihypertensive drugs, initial encounter; I95.2 Hypotension due to drugs; R55 Syncope and collapse; R00.1 Bradycardia, unspecified; E03.9 Hypothyroidism, unspecified; E86.0 Dehydration; D72.829 Elevated white blood cell count, unspecified; T38.0X5A Adverse effect of glucocorticoids and synthetic analogues, initial encounter; X58.XXXA Exposure to other specified factors, initial encounter; I95.89 Other hypotension; D50.9 Iron deficiency anemia, unspecified; E78.5 Hyperlipidemia, unspecified; E66.9 Obesity, unspecified; Z68.29 Body mass index [BMI] 29.0-29.9, adult; Z71.3 Dietary counseling and surveillance; Z87.81 Personal history of (healed) traumatic fracture; Z88.0 Allergy status to penicillin; Z79.899 Other long term (current) drug therapy; Z79.52 Long term (current) use of systemic steroids; Y92.231 Patient bathroom in hospital as the place of occurrence of the external cause; W18.39XA Other fall on same level, initial encounter; Y92.230 Patient room in hospital as the place of occurrence of the external cause
CPT/HCPCS: 36415; 36568; 36600; 70450; 71045; 71260; 74177; 76770; 80048; 80053; 80061; 81001; 81015; 82088; 82533; 82550; 82805; 82948; 83735; 83835; 83880; 84100; 84244; 84439; 84443; 84484; 85025; 85610; 85730; 92950; 93005; 93306; 93880; 94799; 99252; 99284; G0378; J0360; J1610; J1720; J1885; J2405; J3475; J7030; J7040; J7050; Q9967

== ENCOUNTER 2024-08-27 12:12 | Inpatient (IN) | payer MEDICARE ==
[~2024-08-27] VITALS: Ht 142.2 cm; Wt 63.5 kg
[~2024-08-27 12:12] MED LIST changes: +COREG12.5 MG PO; +ISOSORBIDE MONO30 MG PO; +NIFEDIPINE ER30 M1 PO
[2024-08-27 12:30] VITALS: TEMP 97.8
[2024-08-27 12:38] LABS: BASOPHILS % 0.2 % (0.0-1.0); EOSINOPHILS # (AUTO) 0.1 (0.0-0.4); EOSINOPHILS % 0.2 % (0.0-6.0); HEMATOCRIT 35.7 % (34.2-44.1); HEMOGLOBIN 10.9 g/dL (12.0-16.0); LYMPHOCYTES # (AUTO) 1.6 (1.0-3.2); LYMPHOCYTES % 6.7 % (18.0-39.1); MEAN CORPUSCULAR HEMOGLOBIN 30.7 pg (28-32); MEAN CORPUSCULAR HGB CONC 30.5 g/dL (31-35); MEAN CORPUSCULAR VOLUME 100.6 fL (81-99); MONOCYTES # (AUTO) 1.5 (0.2-0.8); MONOCYTES % 6.3 % (4.4-11.3); NEUTROPHILS # (AUTO) 20.9 (2.1-6.9); NEUTROPHILS % 85.9 % (38.7-80.0); PLATELET COUNT 203 x10e3/uL (140-360); RED BLOOD COUNT 3.55 x10e6/uL (3.6-5.1); RED CELL DISTRIBUTION WIDTH 13.1 % (11.7-14.4); WHITE BLOOD COUNT 24.32 x10e3/uL (4.8-10.8)
[2024-08-27 13:06] LABS: ALBUMIN 3.2 g/dL (3.5-5.0); ALBUMIN/GLOBULIN RATIO 1.3 (0.8-2.0); ANION GAP 14.1 mmol/L (8-16); BILIRUBIN,TOTAL 0.8 mg/dL (0.2-1.2); CALCIUM 8.9 mg/dL (8.4-10.2); CREATININE, SERUM 1.27 mg/dL (0.57-1.11); TOTAL PROTEIN 5.6 g/dL (6.5-8.1)
[2024-08-27 13:07] LABS: POTASSIUM 3.1 mmol/L (3.5-5.1)
[2024-08-27] MEDS ORDERED: IOPAMIDOL 370 MG/ML 100 ML INFUS..BTL INJ ONE (13:08)
[2024-08-27] MEDS: HYDROCORTISONE SOD SUCCINATE 100 MG VIAL IV ONE (13:17)
[2024-08-27] MEDS: ONDANSETRON HCL INJ 2MG/ML 2ML 2 MG/ML VIAL IV STA (13:17)
[2024-08-27] MEDS: SODIUM CHLORIDE 0.9% 1000ML 1,000 ML IV ONE (13:17)
[2024-08-27] MEDS: Morphine 2mg Syringe 2 MG/ML SYR IV ONE (13:17)
[2024-08-27] MEDS: METRONIDAZOLE 500MG/NS 100ML 100 ML IV SCH (13:22)
[2024-08-27 14:10] LABS: CLARITY,URINE CLEAR (CLEAR); COLOR,URINE YELLOW (YELLOW); LEUKOCYTE ESTERASE ,URINE NEGATIVE (NEGATIVE); PH,URINE 7 (5 - 7)
[2024-08-27 14:11] LABS: BILIRUBIN,URINE NEGATIVE (NEGATIVE); GLUCOSE, URINE NEGATIVE (NEGATIVE); KETONES,URINE NEGATIVE (NEGATIVE); NITRITE,URINE NEGATIVE (NEGATIVE); PROTEIN,URINE DIPSTICK NEGATIVE (NEGATIVE); URINE UROBILINOGEN 0.2 mg/dL (0.2 - 1)
[2024-08-27 14:18] LABS: BACTERIA,URINE RARE /HPF; EPITHELIAL CELLS,URINE FEW /LPF; RBC,URINE 0-5 /HPF (0-5); WBC,URINE (MAN) 0-5 /HPF (0-5)
[2024-08-27] MEDS: CIPROFLOXACIN 400 MG/D5W 200ML 200 ML IV SCH (15:10)
[2024-08-27 15:25] VITALS: PULSE 70; RESP 16
[2024-08-27 16:00] VITALS: BP 155/56; TEMP 97.8; O2SAT 93
[2024-08-27 16:01] VITALS: BP 147/57; PULSE 72; RESP 18; TEMP 98.1; O2SAT 96
[2024-08-27 16:23] VITALS: BP 147/57; PULSE 72; RESP 18; TEMP 98.1; O2SAT 96
[2024-08-27] MEDS: SODIUM CHLORIDE 0.9% 1000ML 1,000 ML IV SCH (17:05)
[2024-08-27 20:00] VITALS: BP 156/52; PULSE 79; RESP 16; TEMP 98.2; O2SAT 92
[2024-08-27] MEDS: ONDANSETRON HCL INJ 2MG/ML 2ML 2 MG/ML VIAL IV PRN (21:46)
[2024-08-27] MEDS: Morphine 2mg Syringe 2 MG/ML SYR IV PRN (21:46)
[2024-08-28] VITALS (8 sets, daily range): BP systolic 136–167; BP diastolic 40–57; PULSE 80–93; RESP 16–18; TEMP 97.8–99.1; O2SAT 91–96
[2024-08-28 06:19] LABS: HEMATOCRIT 33.7 % (34.2-44.1); HEMOGLOBIN 10.5 g/dL (12.0-16.0); MEAN CORPUSCULAR HEMOGLOBIN 31.1 pg (28-32); MEAN CORPUSCULAR VOLUME 99.7 fL (81-99); RED BLOOD COUNT 3.38 x10e6/uL (3.6-5.1); WHITE BLOOD COUNT 25.81 x10e3/uL (4.8-10.8)
[2024-08-28 06:20] LABS: BASOPHILS % 0.2 % (0.0-1.0); LYMPHOCYTES % 11.7 % (18.0-39.1); MEAN CORPUSCULAR HGB CONC 31.2 g/dL (31-35); MONOCYTES # (AUTO) 1.3 (0.2-0.8); MONOCYTES % 4.8 % (4.4-11.3); NEUTROPHILS # (AUTO) 21.3 (2.1-6.9); NEUTROPHILS % 82.6 % (38.7-80.0); PLATELET COUNT 180 x10e3/uL (140-360); RED CELL DISTRIBUTION WIDTH 13.2 % (11.7-14.4)
[2024-08-28 06:43] LABS: ALBUMIN 2.8 g/dL (3.5-5.0); ALBUMIN/GLOBULIN RATIO 1.1 (0.8-2.0); ANION GAP 13.3 mmol/L (8-16); BILIRUBIN,TOTAL 0.4 mg/dL (0.2-1.2); CALCIUM 7.9 mg/dL (8.4-10.2); CREATININE, SERUM 0.95 mg/dL (0.57-1.11); POTASSIUM 3.3 mmol/L (3.5-5.1); TOTAL PROTEIN 5.4 g/dL (6.5-8.1)
[2024-08-28] MEDS ORDERED: HYDRALAZINE HCL 20 MG/ML VIAL IV PRN (10:15)
[2024-08-28 10:27] LABS: LYMPHOCYTES % (MANUAL) 7 % (19-48); MONOCYTES % (MANUAL) 2 % (3.4-9.0); NEUTROPHILS % (MANUAL) 91 % (40-74); PLATELET ESTIMATE ADEQUATE; PLATELET MORPHOLOGY COMMENT NORMAL
[2024-08-28] MEDS: CARVEDILOL 12.5 MG TAB PO SCH (11:34)
[2024-08-28] MEDS: LISINOPRIL 10 MG TAB PO SCH (11:34)
[2024-08-28] MEDS: ISOSORBIDE MONONITRATE 30 MG TAB CR PO SCH (11:34)
[2024-08-28] MEDS: HYDROCORTISONE 10 MG TAB PO SCH ×2 (11:43→18:03)
[2024-08-28 14:57] LABS: FREE T4 (FREE THYROXINE) 0.73 ng/dL (0.8-1.8); THYROID STIMULATING HORMONE 0.402 uIU/mL (0.350-4.940)
[2024-08-28] MEDS ORDERED: HYDROCORTISONE 10 MG TAB PO SCH (18:00)
[2024-08-28] MEDS: CEFTRIAXONE 2 GM in SODIUM CHLORIDE 0.9% 100 ML IV SCH (18:03)
[2024-08-28] MEDS: NIFEDIPINE CR 30 MG TAB PO SCH (22:10)
[2024-08-28] MEDS: ZOLPIDEM TARTRATE 10 MG TAB PO PRN (22:17)
[2024-08-29] VITALS: BP 153/52; PULSE 77; RESP 18; TEMP 98.3; O2SAT 94
[2024-08-29 04:00] VITALS: BP 149/54; PULSE 77; RESP 18; TEMP 98.8; O2SAT 95
[2024-08-29] MEDS: LEVOTHYROXINE SODIUM 25 MCG TABLET PO SCH (05:19)
[2024-08-29 06:56] LABS: BASOPHILS # (AUTO) 0.1 (0.0-0.1); BASOPHILS % 0.3 % (0.0-1.0); EOSINOPHILS # (AUTO) 0.1 (0.0-0.4); EOSINOPHILS % 0.6 % (0.0-6.0); HEMATOCRIT 33.6 % (34.2-44.1); HEMOGLOBIN 10.3 g/dL (12.0-16.0); LYMPHOCYTES # (AUTO) 3.4 (1.0-3.2); LYMPHOCYTES % 18.3 % (18.0-39.1); MEAN CORPUSCULAR HEMOGLOBIN 30.7 pg (28-32); MEAN CORPUSCULAR HGB CONC 30.7 g/dL (31-35); MONOCYTES % 5.4 % (4.4-11.3); NEUTROPHILS # (AUTO) 13.9 (2.1-6.9); NEUTROPHILS % 74.8 % (38.7-80.0); PLATELET COUNT 179 x10e3/uL (140-360); RED BLOOD COUNT 3.36 x10e6/uL (3.6-5.1); RED CELL DISTRIBUTION WIDTH 13.2 % (11.7-14.4)
[2024-08-29 07:37] LABS: ALBUMIN 2.5 g/dL (3.5-5.0); ANION GAP 13.1 mmol/L (8-16); BILIRUBIN,TOTAL 0.3 mg/dL (0.2-1.2); CALCIUM 7.5 mg/dL (8.4-10.2); CREATININE, SERUM 0.83 mg/dL (0.57-1.11); MAGNESIUM 1.7 MG/DL (1.3-2.1); PHOSPHORUS 2.1 MG/DL (2.3-4.7); TOTAL PROTEIN 5.1 g/dL (6.5-8.1)
[2024-08-29 07:38] LABS: POTASSIUM 3.1 mmol/L (3.5-5.1)
[2024-08-29 07:49] LABS: THYROID STIMULATING HORMONE 0.448 uIU/mL (0.350-4.940)
[2024-08-29 08:31] LABS: FOLATE 11.9 ng/mL (7.0-15.4)
[2024-08-29 08:37] VITALS: BP 148/51; PULSE 83; RESP 17; TEMP 98.8; O2SAT 95
[2024-08-29] MEDS: HYDROCORTISONE 10 MG TAB PO SCH (08:45)
[2024-08-29 12:25] VITALS: BP 146/53; PULSE 78; RESP 18; TEMP 97.9; O2SAT 95
[2024-08-29 19:32] VITALS: BP 144/50; PULSE 74; RESP 20; TEMP 98.8; O2SAT 95
[2024-08-29 21:00] VITALS: BP 144/50; PULSE 74; RESP 20; TEMP 98.8; O2SAT 95
[2024-08-30] VITALS (9 sets, daily range): BP systolic 135–199; BP diastolic 52–69; PULSE 75–85; RESP 16–20; TEMP 97.8–98.8; O2SAT 96–100
[2024-08-31] VITALS (8 sets, daily range): BP systolic 171–192; BP diastolic 59–74; PULSE 75–80; RESP 17–19; TEMP 98–98.8; O2SAT 95–100
[2024-08-31 06:38] LABS: BASOPHILS # (AUTO) 0.1 (0.0-0.1); BASOPHILS % 0.5 % (0.0-1.0); EOSINOPHILS # (AUTO) 0.2 (0.0-0.4); EOSINOPHILS % 1.4 % (0.0-6.0); HEMATOCRIT 34.4 % (34.2-44.1); HEMOGLOBIN 11.6 g/dL (12.0-16.0); LYMPHOCYTES # (AUTO) 3.5 (1.0-3.2); LYMPHOCYTES % 31.4 % (18.0-39.1); MEAN CORPUSCULAR HEMOGLOBIN 30.3 pg (28-32); MEAN CORPUSCULAR HGB CONC 33.7 g/dL (31-35); MEAN CORPUSCULAR VOLUME 89.8 fL (81-99); MONOCYTES # (AUTO) 0.9 (0.2-0.8); MONOCYTES % 8.3 % (4.4-11.3); NEUTROPHILS # (AUTO) 6.4 (2.1-6.9); NEUTROPHILS % 57.1 % (38.7-80.0); PLATELET COUNT 243 x10e3/uL (140-360); RED BLOOD COUNT 3.83 x10e6/uL (3.6-5.1); RED CELL DISTRIBUTION WIDTH 13.2 % (11.7-14.4); WHITE BLOOD COUNT 11.14 x10e3/uL (4.8-10.8)
[2024-08-31 07:13] LABS: ANION GAP 13.8 mmol/L (8-16); CALCIUM 8.2 mg/dL (8.4-10.2); CREATININE, SERUM 0.75 mg/dL (0.57-1.11)
[2024-08-31 07:18] LABS: POTASSIUM 2.8 mmol/L (3.5-5.1)
[2024-08-31] MEDS: POTASSIUM CHLORIDE 10MEQ EA PO SCH ×2 (12:04→14:46)
[2024-08-31] MEDS: ISOSORBIDE MONONITRATE 30 MG TAB CR PO SCH (16:38)
[2024-08-31] MEDS: LISINOPRIL 10 MG TAB PO SCH (16:38)
[2024-09-01 03:07] VITALS: BP 182/66; PULSE 71; RESP 18; TEMP 98.5; O2SAT 100
[2024-09-01 07:54] LABS: MAGNESIUM 1.8 MG/DL (1.3-2.1)
[2024-09-01 08:18] LABS: PHOSPHORUS 2.8 MG/DL (2.3-4.7)
[2024-09-01 08:53] VITALS: BP 169/55; PULSE 73; RESP 20; TEMP 97.6; O2SAT 99
[2024-09-01 11:35] VITALS: BP 169/55; PULSE 73; RESP 20; TEMP 97.6; O2SAT 99
[2024-09-01 12:03] VITALS: BP 132/59; PULSE 71; RESP 20; TEMP 98.4; O2SAT 98
== END 2024-09-01 12:50 | disposition home or self-care (01) | DRG 372 ==
LOC: ER 12:17 → ERHOLD 15:20 → MED/SURG3 15:44 → OBSVTOIN 08-28 10:03
PROVIDERS: ADMIT Internal Medicine; ATTEND Internal Medicine
DX: A04.9 Bacterial intestinal infection, unspecified (principal); E27.1 Primary adrenocortical insufficiency; N17.9 Acute kidney failure, unspecified; E87.6 Hypokalemia; E83.39 Other disorders of phosphorus metabolism; E83.42 Hypomagnesemia; E86.0 Dehydration; I95.9 Hypotension, unspecified; K59.00 Constipation, unspecified; D72.828 Other elevated white blood cell count; T38.0X5A Adverse effect of glucocorticoids and synthetic analogues, initial encounter; Y92.009 Unspecified place in unspecified non-institutional (private) residence as the place of occurrence of the external cause; D64.9 Anemia, unspecified; I10 Essential (primary) hypertension; E78.5 Hyperlipidemia, unspecified; K76.0 Fatty (change of) liver, not elsewhere classified; M81.0 Age-related osteoporosis without current pathological fracture; E66.9 Obesity, unspecified; Z68.31 Body mass index [BMI] 31.0-31.9, adult; R53.81 Other malaise; G47.00 Insomnia, unspecified; Z79.899 Other long term (current) drug therapy; Z79.52 Long term (current) use of systemic steroids
CPT/HCPCS: 36415; 74177; 74181; 80048; 80053; 81001; 82024; 82607; 82746; 83036; 83690; 83735; 84100; 84439; 84443; 85025; 99284; G0378; J0696; J1720; J2270; J2405; J2470; J7030; J7050; Q9967

== ENCOUNTER 2024-10-06 21:55 | Emergency (ER) | payer MEDICARE, OTHER ==
[~2024-10-06] VITALS: Ht 142.2 cm; Wt 63.5 kg
[2024-10-06] MEDS ORDERED: METHYLPREDNISOLONE SOD SUCC 125 MG/2ML VIAL IV STA (23:24)
[2024-10-06] MEDS ORDERED: DIPHENHYDRAMINE HCL INJ 50 MG/ML VIAL IV STA (23:24)
[2024-10-06] MEDS ORDERED: KETOROLAC TROMETHAMINE 30 MG/ML VIAL IV STA (23:24)
[2024-10-06] MEDS ORDERED: METOCLOPRAMIDE HCL 10 MG/2ML VIAL IV STA (23:24)
[2024-10-06] MEDS ORDERED: HYDRALAZINE HCL 20 MG/ML VIAL IV STA (23:30)
[2024-10-06 23:31] VITALS: RESP 20; TEMP 98.4
[2024-10-06] MEDS ORDERED: HYDRALAZINE HCL 20 MG/ML VIAL ONE (23:54)
[2024-10-07] MEDS: SODIUM CHLORIDE 0.9% 1000ML 1,000 ML IV STA
[2024-10-07] MEDS: HYDRALAZINE HCL 20 MG/ML VIAL IV STA (00:01)
[2024-10-07 00:10] LABS: BASOPHILS # (AUTO) 0.1 (0.0-0.1); BASOPHILS % 0.4 % (0.0-1.0); EOSINOPHILS % 0.2 % (0.0-6.0); HEMATOCRIT 40.1 % (34.2-44.1); HEMOGLOBIN 13.5 g/dL (12.0-16.0); LYMPHOCYTES # (AUTO) 2.9 (1.0-3.2); MEAN CORPUSCULAR HEMOGLOBIN 30.3 pg (28-32); MEAN CORPUSCULAR HGB CONC 33.7 g/dL (31-35); MEAN CORPUSCULAR VOLUME 89.9 fL (81-99); MONOCYTES # (AUTO) 0.5 (0.2-0.8); MONOCYTES % 3.9 % (4.4-11.3); NEUTROPHILS # (AUTO) 9.6 (2.1-6.9); PLATELET COUNT 277 x10e3/uL (140-360); RED BLOOD COUNT 4.46 x10e6/uL (3.6-5.1); RED CELL DISTRIBUTION WIDTH 13.7 % (11.7-14.4)
[2024-10-07 00:30] VITALS: PULSE 79
[2024-10-07 00:34] LABS: ALBUMIN/GLOBULIN RATIO 1.3 (0.8-2.0); ANION GAP 16.5 mmol/L (8-16); BILIRUBIN,TOTAL 0.2 mg/dL (0.2-1.2); CREATININE, SERUM 1.32 mg/dL (0.57-1.11); POTASSIUM 4.5 mmol/L (3.5-5.1); TOTAL PROTEIN 7.1 g/dL (6.5-8.1)
[2024-10-07] MEDS: METOPROLOL TARTRATE INJ 1 MG/ML VIAL IV ONE (01:04)
[2024-10-07 01:18] VITALS: BP 139/42; O2SAT 100
== END 2024-10-07 01:15 | disposition home or self-care (01) ==
LOC: ER 22:03
DX: R51.9 Headache, unspecified (principal); I10 Essential (primary) hypertension; E78.5 Hyperlipidemia, unspecified; M81.0 Age-related osteoporosis without current pathological fracture
CPT/HCPCS: 36415; 70450; 80053; 85025; 99284; J0360; J7030

== ENCOUNTER 2025-02-02 20:15 | Emergency (ER) | payer MEDICARE, MEDICAID ==
[~2025-02-02] VITALS: Ht 139.7 cm; Wt 64.4 kg
[2025-02-02] MEDS ORDERED: SODIUM CHLORIDE FLUSH 10 ML SYR IV PRN (21:00)
[2025-02-02 21:19] LABS: BASOPHILS % 0.5 % (0.0-1.0); EOSINOPHILS % 0.9 % (0.0-6.0); LYMPHOCYTES % 32.3 % (18.0-39.1); MONOCYTES % 6.1 % (4.4-11.3); NEUTROPHILS % 59.4 % (38.7-80.0); RED CELL DISTRIBUTION WIDTH 13.2 % (11.7-14.4)
[2025-02-02 21:27] LABS: LEUKOCYTE ESTERASE ,URINE NEGATIVE (NEGATIVE); PROTEIN,URINE DIPSTICK TRACE (NEGATIVE); URINE UROBILINOGEN 0.2 mg/dL (0.2 - 1)
[2025-02-02 21:29] LABS: WBC,URINE (MAN) 0-5 /HPF (0-5)
[2025-02-02 21:30] LABS: EPITHELIAL CELLS,URINE RARE /LPF
[2025-02-02 21:43] LABS: EST GLOMERULAR FILTRATION RATE 53.0 ML/MIN (>=60)
[2025-02-02] MEDS ORDERED: CLONIDINE HCL0.1 MG PO (22:13)
[2025-02-02 22:27] VITALS: PULSE 61; RESP 17; TEMP 98.2; O2SAT 95
[2025-02-02 22:31] VITALS: BP 164/65
== END 2025-02-02 22:37 | disposition home or self-care (01) ==
LOC: ER 20:55
DX: I16.0 Hypertensive urgency (principal); R51.9 Headache, unspecified; I10 Essential (primary) hypertension; E78.5 Hyperlipidemia, unspecified; M81.0 Age-related osteoporosis without current pathological fracture; R94.31 Abnormal electrocardiogram [ECG] [EKG]
CPT/HCPCS: 36415; 80053; 81001; 85025; 93005; 99284

== ENCOUNTER 2025-02-25 16:37 | Emergency (ER) | payer MEDICARE, OTHER ==
[~2025-02-25] VITALS: Ht 139.7 cm; Wt 64.4 kg
[~2025-02-25 16:37] MED LIST changes: +CLONIDINE HCL0.1 MG PO
[2025-02-25 17:18] VITALS: TEMP 98.6
[2025-02-25 18:39] LABS: BASOPHILS % 0.4 % (0.0-1.0); EOSINOPHILS % 0.3 % (0.0-6.0); LYMPHOCYTES % 26.8 % (18.0-39.1); MONOCYTES % 4.4 % (4.4-11.3); NEUTROPHILS % 67.3 % (38.7-80.0); RED CELL DISTRIBUTION WIDTH 13.3 % (11.7-14.4)
[2025-02-25 19:02] LABS: EST GLOMERULAR FILTRATION RATE 54.0 ML/MIN (>=60)
[2025-02-25 20:30] VITALS: PULSE 57; RESP 20
[2025-02-25] MEDS: HYDRALAZINE HCL 20 MG/ML VIAL IV ONE (20:35)
[2025-02-25 20:49] VITALS: BP 145/51; PULSE 57; RESP 18; O2SAT 98
== END 2025-02-25 20:57 | disposition home or self-care (01) ==
LOC: ER 18:18
DX: I16.0 Hypertensive urgency (principal); I10 Essential (primary) hypertension; E78.5 Hyperlipidemia, unspecified; M81.0 Age-related osteoporosis without current pathological fracture; R94.31 Abnormal electrocardiogram [ECG] [EKG]
CPT/HCPCS: 36415; 80053; 84484; 85025; 93005; 99284; J0360